=== PATIENT | female | born 1940 | race Caucasian/White ===

== ENCOUNTER 2021-09-06 16:49 | Inpatient (IN) ==
[2021-09-07] MEDS ORDERED: NON-FORMULARY MEDICATION 1 EACH EACH (Alendronate Sodium [Fosamax] 70 MG Tablet) PO SCH (16:30)
[2021-09-07] MEDS ORDERED: Warfarin perPT PO PRN (18:00)
[2021-09-07] MEDS ORDERED: *HR* Metformin 500 MG TABLET PO SCH (21:00)
[2021-09-08] MEDS ORDERED: *HR* Enoxaparin 40 MG/0.4 ML SYRINGE SQ SCH (07:00)
[2021-09-08] MEDS ORDERED: Cholecalciferol (D-3) 1,000 UNIT (25MCG) TABLET PO SCH (09:00)
[2021-09-08] MEDS ORDERED: Magnesium Oxide 400 MG TABLET PO SCH (09:00)
[2021-09-17] MEDS ORDERED: Dextrose Gel 15 GM/37.5 ML TUBE PO PRN ×2 (12:11→12:12)
[2021-09-17] MEDS ORDERED: *HR* Dextrose 50 % in Water (Syg) 50 ML SYRINGE IVP PRN (12:13)
[2021-09-17] MEDS: Gabapentin 400 MG CAPSULE PO SCH ×2 (15:03→19:38)
[2021-09-17] MEDS ORDERED: D5% in Water 1,000 ML IVC PRN (16:21)
[2021-09-17] MEDS: Insulin LISPRO 300 UNITS/3 ML VIAL SUBQ SCH ×2 (17:21→19:28)
[2021-09-17] MEDS ORDERED: *HR* Warfarin 3 MG TABLET PO ONE (18:00)
[2021-09-17] MEDS ORDERED: Warfarin perPT PO PRN (18:00)
[2021-09-17] MEDS: *HR* Metformin 500 MG TABLET PO SCH (19:39)
[2021-09-17] MEDS ORDERED: Insulin DETEMIR 100 UNIT/ML X5UNITS SUBQ SCH (21:00)
[2021-09-18 04:47] LABS: Hematocrit 26.2 % (35.3-44.9); Hemoglobin 8.4 g/dL (11.5-15.4); Mean Corpuscular HGB Conc 32.1 g/dL (31.6-35.5); Mean Corpuscular Hemoglobin 32.7 pg (28.0-33.3); Mean Corpuscular Volume 101.9 fL (83.0-100.0); Mean Platelet Volume 8.7 fL (9.4-12.4); Platelet Count 284 K/mcL (140-400); Red Blood Count 2.57 M/mcL (3.82-4.97); Red Cell Distribution Width 13.3 % (11.5-14.5)
[2021-09-18 04:50] LABS: INR 2.3; Prothrombin Time 25.3 Seconds (9.4-12.1)
[2021-09-18 05:02] LABS: BUN/Creatinine Ratio 20 (6-26); Blood Urea Nitrogen 10 mg/dL (8-23); Calcium 7.7 mg/dL (8.6-10.3); Carbon Dioxide 33 mEq/L (23-29); Chloride 90 mEq/L (98-107); Glucose 132 mg/dL (70-105); Osmolality,Calculated 267 (280-300); Sodium 128 mEq/L (136-145); eGFR For African Americans > 60 (> 60); eGFR For Non-African Americans > 60 (> 60)
[2021-09-18] MEDS: Cholecalciferol (D-3) 1,000 UNIT (25MCG) TABLET PO SCH (07:33)
[2021-09-18] MEDS: Cyanocobalamin (B-12) 1,000 MCG TABLET PO SCH (07:33)
[2021-09-18] MEDS: amLODIPine 5 MG TABLET PO SCH (07:33)
[2021-09-18] MEDS: Furosemide 20 MG TABLET PO SCH (07:34)
[2021-09-18] MEDS: Magnesium Oxide 400 MG TABLET PO SCH (07:34)
[2021-09-18] MEDS: *HR* Metformin 500 MG TABLET PO SCH ×2 (07:34→20:32)
[2021-09-18] MEDS: Gabapentin 400 MG CAPSULE PO SCH ×3 (07:35→20:31)
[2021-09-18] MEDS: Insulin LISPRO 300 UNITS/3 ML VIAL SUBQ SCH ×4 (07:35→20:26)
[2021-09-18] MEDS: *HR* Glimepiride 4 MG TABLET PO SCH (07:35)
[2021-09-18] MEDS ORDERED: hydroCHLOROthiazide 25 MG TABLET PO SCH (09:00)
[2021-09-18] MEDS: Acetaminophen 325 MG TABLET PO PRN ×2 (11:38→20:35)
[2021-09-18] MEDS ORDERED: *HR* Warfarin 3 MG TABLET PO ONE (18:00)
[2021-09-19 06:29] LABS: INR 1.9; Prothrombin Time 21.2 Seconds (9.4-12.1)
[2021-09-19] MEDS: Insulin LISPRO 300 UNITS/3 ML VIAL SUBQ SCH ×4 (08:01→20:21)
[2021-09-19] MEDS: Gabapentin 400 MG CAPSULE PO SCH ×3 (08:02→20:18)
[2021-09-19] MEDS: Cyanocobalamin (B-12) 1,000 MCG TABLET PO SCH (08:03)
[2021-09-19] MEDS: Furosemide 20 MG TABLET PO SCH (08:03)
[2021-09-19] MEDS: amLODIPine 5 MG TABLET PO SCH (08:03)
[2021-09-19] MEDS: Magnesium Oxide 400 MG TABLET PO SCH (08:03)
[2021-09-19] MEDS: *HR* Metformin 500 MG TABLET PO SCH ×2 (08:03→20:18)
[2021-09-19] MEDS: Cholecalciferol (D-3) 1,000 UNIT (25MCG) TABLET PO SCH (08:04)
[2021-09-19] MEDS: *HR* Glimepiride 4 MG TABLET PO SCH (08:04)
[2021-09-19] MEDS: Acetaminophen 325 MG TABLET PO PRN (16:51)
[2021-09-19] MEDS ORDERED: *HR* Warfarin 3 MG TABLET PO ONE (18:00)
[2021-09-20] MEDS: Acetaminophen 325 MG TABLET PO PRN ×3 (04:35→21:26)
[2021-09-20 06:09] LABS: Hematocrit 26.5 % (35.3-44.9); Hemoglobin 8.5 g/dL (11.5-15.4); Mean Corpuscular HGB Conc 32.1 g/dL (31.6-35.5); Mean Corpuscular Hemoglobin 32.2 pg (28.0-33.3); Mean Corpuscular Volume 100.4 fL (83.0-100.0); Mean Platelet Volume 8.7 fL (9.4-12.4); Platelet Count 288 K/mcL (140-400); Red Blood Count 2.64 M/mcL (3.82-4.97); Red Cell Distribution Width 13.2 % (11.5-14.5); White Blood Count 6.7 K/mcL (4.3-11.1)
[2021-09-20 06:15] LABS: INR 2.1
[2021-09-20 06:40] LABS: Alanine Aminotransferase 12 Units/L (7-52); Albumin 2.7 g/dL (3.5-5.7); Alkaline Phosphatase 53 Units/L (34-104); Aspartate Amino Transferase 17 Units/L (13-39); BUN/Creatinine Ratio 20 (6-26); Bilirubin,Total 0.8 mg/dL (0.3-1.0); Blood Urea Nitrogen 9 mg/dL (8-23); Calcium 7.6 mg/dL (8.6-10.3); Carbon Dioxide 29 mEq/L (23-29); Chloride 91 mEq/L (98-107); Globulin 2.7 g/dL (2.4-3.5); Glucose 124 mg/dL (70-105); Magnesium 1.5 mg/dL (1.6-2.6); Osmolality,Calculated 260 (280-300); Potassium 4.2 mEq/L (3.5-5.1); Sodium 125 mEq/L (136-145); Total Protein 5.4 g/dL (6.4-8.9); eGFR For African Americans > 60 (> 60); eGFR For Non-African Americans > 60 (> 60)
[2021-09-20] MEDS ORDERED: Ipratropium/Albuterol Neb 3 ML IH PRN (08:41)
[2021-09-20] MEDS ORDERED: Ipratropium/Albuterol Neb 3 ML ONE (08:45)
[2021-09-20] MEDS: Furosemide 20 MG TABLET PO SCH (08:45)
[2021-09-20] MEDS: Gabapentin 400 MG CAPSULE PO SCH ×3 (08:46→21:26)
[2021-09-20] MEDS: Magnesium Oxide 400 MG TABLET PO SCH (08:46)
[2021-09-20] MEDS: *HR* Glimepiride 4 MG TABLET PO SCH (08:47)
[2021-09-20] MEDS: Cyanocobalamin (B-12) 1,000 MCG TABLET PO SCH (08:47)
[2021-09-20] MEDS: amLODIPine 5 MG TABLET PO SCH (08:47)
[2021-09-20] MEDS: *HR* Metformin 500 MG TABLET PO SCH ×2 (08:48→21:27)
[2021-09-20] MEDS: Insulin LISPRO 300 UNITS/3 ML VIAL SUBQ SCH ×4 (08:48→21:29)
[2021-09-20] MEDS: Cholecalciferol (D-3) 1,000 UNIT (25MCG) TABLET PO SCH (08:50)
[2021-09-20] MEDS ORDERED: Furosemide 40 MG/4 ML VIAL IVP ONE (09:32)
[2021-09-20] MEDS ORDERED: *HR* Warfarin 3 MG TABLET PO ONE (18:00)
[2021-09-20] MEDS: Furosemide 20 MG/2 ML VIAL IVP SCH (21:28)
[2021-09-21 06:27] LABS: Basophils % 0.6 %; Eosinophils # 0.4 K/mcL (0.0-0.6); Eosinophils % 6.9 %; Hematocrit 27.7 % (35.3-44.9); Immature Granulocytes % 0.6 % (0-4); Lymphocytes # 0.8 K/mcL (0.6-4.6); Lymphocytes % 12.9 %; Mean Corpuscular HGB Conc 32.5 g/dL (31.6-35.5); Mean Corpuscular Hemoglobin 32.4 pg (28.0-33.3); Mean Corpuscular Volume 99.6 fL (83.0-100.0); Mean Platelet Volume 8.6 fL (9.4-12.4); Monocytes # 0.7 K/mcL (0.0-1.3); Monocytes % 11.4 %; Neutrophils # 4.2 K/mcL (1.6-8.9); Platelet Count 291 K/mcL (140-400); Red Blood Count 2.78 M/mcL (3.82-4.97); Segmented Neutrophils % 67.6 %; White Blood Count 6.2 K/mcL (4.3-11.1)
[2021-09-21 06:35] LABS: INR 2.7; Prothrombin Time 29.6 Seconds (9.4-12.1)
[2021-09-21 06:41] LABS: BUN/Creatinine Ratio 18 (6-26); Blood Urea Nitrogen 10 mg/dL (8-23); Calcium 7.7 mg/dL (8.6-10.3); Carbon Dioxide 29 mEq/L (23-29); Chloride 93 mEq/L (98-107); Glucose 115 mg/dL (70-105); Osmolality,Calculated 266 (280-300); Potassium 4.1 mEq/L (3.5-5.1); Sodium 128 mEq/L (136-145); eGFR For African Americans > 60 (> 60); eGFR For Non-African Americans > 60 (> 60)
[2021-09-21] MEDS: Insulin LISPRO 300 UNITS/3 ML VIAL SUBQ SCH ×4 (07:51→20:17)
[2021-09-21] MEDS: Magnesium Oxide 400 MG TABLET PO SCH (08:08)
[2021-09-21] MEDS: Furosemide 20 MG/2 ML VIAL IVP SCH ×2 (08:09→20:23)
[2021-09-21] MEDS: Cholecalciferol (D-3) 1,000 UNIT (25MCG) TABLET PO SCH (08:09)
[2021-09-21] MEDS: Gabapentin 400 MG CAPSULE PO SCH ×3 (08:09→20:18)
[2021-09-21] MEDS: Cyanocobalamin (B-12) 1,000 MCG TABLET PO SCH (08:09)
[2021-09-21] MEDS: *HR* Glimepiride 4 MG TABLET PO SCH (08:09)
[2021-09-21] MEDS: *HR* Metformin 500 MG TABLET PO SCH ×2 (08:09→20:19)
[2021-09-21] MEDS: amLODIPine 5 MG TABLET PO SCH (08:09)
[2021-09-21] MEDS: Acetaminophen 325 MG TABLET PO PRN ×2 (10:51→17:39)
[2021-09-21] MEDS ORDERED: *HR* Warfarin 3 MG TABLET PO ONE (18:00)
[2021-09-21] MEDS: *HR* OxyCODONE Immed Rel 5 MG TABLET PO PRN (20:18)
[2021-09-22 08:22] LABS: INR 3.2
[2021-09-22] MEDS: Insulin LISPRO 300 UNITS/3 ML VIAL SUBQ SCH ×4 (09:17→19:45)
[2021-09-22] MEDS: Acetaminophen 325 MG TABLET PO PRN ×2 (09:21→18:18)
[2021-09-22] MEDS: Cholecalciferol (D-3) 1,000 UNIT (25MCG) TABLET PO SCH (09:23)
[2021-09-22] MEDS: *HR* Metformin 500 MG TABLET PO SCH ×2 (09:23→19:20)
[2021-09-22] MEDS: Magnesium Oxide 400 MG TABLET PO SCH (09:23)
[2021-09-22] MEDS: *HR* Glimepiride 4 MG TABLET PO SCH (09:23)
[2021-09-22] MEDS: Gabapentin 400 MG CAPSULE PO SCH ×3 (09:23→19:19)
[2021-09-22] MEDS: Cyanocobalamin (B-12) 1,000 MCG TABLET PO SCH (09:23)
[2021-09-22] MEDS: amLODIPine 5 MG TABLET PO SCH (09:23)
[2021-09-22] MEDS: Furosemide 20 MG/2 ML VIAL IVP SCH (09:24)
[2021-09-22] MEDS: Furosemide 20 MG TABLET PO SCH (16:34)
[2021-09-23] MEDS: Acetaminophen 325 MG TABLET PO PRN ×3 (04:28→23:36)
[2021-09-23 04:40] LABS: Basophils # 0.1 K/mcL (0.0-0.2); Basophils % 0.9 %; Eosinophils # 0.6 K/mcL (0.0-0.6); Eosinophils % 9.8 %; Hemoglobin 9.4 g/dL (11.5-15.4); Immature Granulocytes % 0.5 % (0-4); Lymphocytes # 1.1 K/mcL (0.6-4.6); Lymphocytes % 19.3 %; Mean Corpuscular HGB Conc 32.4 g/dL (31.6-35.5); Mean Corpuscular Volume 98.6 fL (83.0-100.0); Mean Platelet Volume 8.5 fL (9.4-12.4); Monocytes # 0.7 K/mcL (0.0-1.3); Monocytes % 11.9 %; Neutrophils # 3.4 K/mcL (1.6-8.9); Platelet Count 291 K/mcL (140-400); Red Blood Count 2.94 M/mcL (3.82-4.97); Red Cell Distribution Width 13.2 % (11.5-14.5); Segmented Neutrophils % 57.6 %; White Blood Count 5.8 K/mcL (4.3-11.1)
[2021-09-23 04:42] LABS: Prothrombin Time 33.4 Seconds (9.4-12.1)
[2021-09-23 04:54] LABS: BUN/Creatinine Ratio 20 (6-26); Blood Urea Nitrogen 8 mg/dL (8-23); Calcium 8.2 mg/dL (8.6-10.3); Carbon Dioxide 31 mEq/L (23-29); Chloride 96 mEq/L (98-107); Glucose 113 mg/dL (70-105); Osmolality,Calculated 273 (280-300); Potassium 3.7 mEq/L (3.5-5.1); Sodium 132 mEq/L (136-145); eGFR For African Americans > 60 (> 60); eGFR For Non-African Americans > 60 (> 60)
[2021-09-23] MEDS: *HR* Metformin 500 MG TABLET PO SCH ×2 (08:09→19:33)
[2021-09-23] MEDS: Cyanocobalamin (B-12) 1,000 MCG TABLET PO SCH (08:09)
[2021-09-23] MEDS: Magnesium Oxide 400 MG TABLET PO SCH (08:10)
[2021-09-23] MEDS: amLODIPine 5 MG TABLET PO SCH (08:10)
[2021-09-23] MEDS: Insulin LISPRO 300 UNITS/3 ML VIAL SUBQ SCH ×3 (08:10→17:16)
[2021-09-23] MEDS: Cholecalciferol (D-3) 1,000 UNIT (25MCG) TABLET PO SCH (08:10)
[2021-09-23] MEDS: *HR* Glimepiride 4 MG TABLET PO SCH (08:10)
[2021-09-23] MEDS: Furosemide 20 MG TABLET PO SCH ×2 (08:10→17:14)
[2021-09-23] MEDS: Gabapentin 400 MG CAPSULE PO SCH ×3 (08:10→19:32)
[2021-09-23] MEDS ORDERED: *HR* Warfarin 3 MG TABLET PO ONE (18:00)
[2021-09-24] MEDS: Insulin LISPRO 300 UNITS/3 ML VIAL SUBQ SCH ×5 (00:20→19:32)
[2021-09-24 04:53] LABS: INR 2.7; Prothrombin Time 29.9 Seconds (9.4-12.1)
[2021-09-24] MEDS: Gabapentin 400 MG CAPSULE PO SCH ×3 (08:20→19:28)
[2021-09-24] MEDS: Cyanocobalamin (B-12) 1,000 MCG TABLET PO SCH (08:20)
[2021-09-24] MEDS: *HR* Metformin 500 MG TABLET PO SCH ×2 (08:20→19:29)
[2021-09-24] MEDS: Furosemide 20 MG TABLET PO SCH ×2 (08:20→17:05)
[2021-09-24] MEDS: Magnesium Oxide 400 MG TABLET PO SCH (08:21)
[2021-09-24] MEDS: *HR* Glimepiride 4 MG TABLET PO SCH (08:21)
[2021-09-24] MEDS: amLODIPine 5 MG TABLET PO SCH (08:21)
[2021-09-24] MEDS: Cholecalciferol (D-3) 1,000 UNIT (25MCG) TABLET PO SCH (08:21)
[2021-09-24] MEDS ORDERED: *HR* Warfarin 3 MG TABLET PO ONE (18:00)
[2021-09-24] MEDS: Acetaminophen 325 MG TABLET PO PRN (19:27)
[2021-09-24] MEDS: Sennosides 8.6 MG TABLET PO SCH (19:32)
[2021-09-25 04:52] LABS: INR 2.1; Prothrombin Time 23.1 Seconds (9.4-12.1)
[2021-09-25] MEDS: Furosemide 20 MG TABLET PO SCH ×2 (07:43→18:11)
[2021-09-25] MEDS: Cholecalciferol (D-3) 1,000 UNIT (25MCG) TABLET PO SCH (07:44)
[2021-09-25] MEDS: Gabapentin 400 MG CAPSULE PO SCH ×3 (07:44→20:32)
[2021-09-25] MEDS: *HR* Glimepiride 4 MG TABLET PO SCH (07:45)
[2021-09-25] MEDS: Magnesium Oxide 400 MG TABLET PO SCH (07:45)
[2021-09-25] MEDS: *HR* Metformin 500 MG TABLET PO SCH ×2 (07:46→20:31)
[2021-09-25] MEDS: amLODIPine 5 MG TABLET PO SCH (07:46)
[2021-09-25] MEDS: Sennosides 8.6 MG TABLET PO SCH ×2 (07:46→20:33)
[2021-09-25] MEDS: Cyanocobalamin (B-12) 1,000 MCG TABLET PO SCH (07:47)
[2021-09-25] MEDS: Insulin LISPRO 300 UNITS/3 ML VIAL SUBQ SCH ×4 (07:48→20:31)
[2021-09-25] MEDS: Acetaminophen 325 MG TABLET PO PRN (10:47)
[2021-09-25] MEDS ORDERED: *HR* Warfarin 3 MG TABLET PO ONE (18:00)
[2021-09-26 06:08] LABS: INR 1.8; Prothrombin Time 20.5 Seconds (9.4-12.1)
[2021-09-26] MEDS: Insulin LISPRO 300 UNITS/3 ML VIAL SUBQ SCH ×4 (08:11→20:17)
[2021-09-26] MEDS: Cholecalciferol (D-3) 1,000 UNIT (25MCG) TABLET PO SCH (08:12)
[2021-09-26] MEDS: Acetaminophen 325 MG TABLET PO PRN ×2 (08:12→20:16)
[2021-09-26] MEDS: *HR* Glimepiride 4 MG TABLET PO SCH (08:13)
[2021-09-26] MEDS: amLODIPine 5 MG TABLET PO SCH (08:13)
[2021-09-26] MEDS: Magnesium Oxide 400 MG TABLET PO SCH (08:13)
[2021-09-26] MEDS: Gabapentin 400 MG CAPSULE PO SCH ×3 (08:13→20:16)
[2021-09-26] MEDS: Cyanocobalamin (B-12) 1,000 MCG TABLET PO SCH (08:13)
[2021-09-26] MEDS: Sennosides 8.6 MG TABLET PO SCH ×2 (08:13→20:16)
[2021-09-26] MEDS: *HR* Metformin 500 MG TABLET PO SCH ×2 (08:14→20:16)
[2021-09-26] MEDS: Furosemide 20 MG TABLET PO SCH ×2 (08:14→15:25)
[2021-09-26] MEDS ORDERED: *HR* Warfarin 3 MG TABLET PO ONE (18:00)
[2021-09-27 06:23] LABS: Hematocrit 33.2 % (35.3-44.9); Hemoglobin 10.7 g/dL (11.5-15.4); Mean Corpuscular HGB Conc 32.2 g/dL (31.6-35.5); Mean Corpuscular Hemoglobin 31.9 pg (28.0-33.3); Mean Corpuscular Volume 99.1 fL (83.0-100.0); Mean Platelet Volume 8.6 fL (9.4-12.4); Platelet Count 240 K/mcL (140-400); Red Blood Count 3.35 M/mcL (3.82-4.97); Red Cell Distribution Width 13.7 % (11.5-14.5); White Blood Count 6.4 K/mcL (4.3-11.1)
[2021-09-27 06:35] LABS: Prothrombin Time 22.1 Seconds (9.4-12.1)
[2021-09-27 06:59] LABS: Alanine Aminotransferase 12 Units/L (7-52); Albumin 3.3 g/dL (3.5-5.7); Albumin/Globulin Ratio 1.1 (1.1-2.2); Alkaline Phosphatase 66 Units/L (34-104); Aspartate Amino Transferase 16 Units/L (13-39); BUN/Creatinine Ratio 24 (6-26); Bilirubin,Total 0.9 mg/dL (0.3-1.0); Blood Urea Nitrogen 12 mg/dL (8-23); Calcium 9.2 mg/dL (8.6-10.3); Carbon Dioxide 27 mEq/L (23-29); Chloride 97 mEq/L (98-107); Glucose 107 mg/dL (70-105); Magnesium 1.3 mg/dL (1.6-2.6); Osmolality,Calculated 276 (280-300); Potassium 3.5 mEq/L (3.5-5.1); Sodium 133 mEq/L (136-145); Total Protein 6.3 g/dL (6.4-8.9); eGFR For African Americans > 60 (> 60); eGFR For Non-African Americans > 60 (> 60)
[2021-09-27] MEDS: Gabapentin 400 MG CAPSULE PO SCH ×3 (07:45→20:53)
[2021-09-27] MEDS: Cyanocobalamin (B-12) 1,000 MCG TABLET PO SCH (07:45)
[2021-09-27] MEDS: amLODIPine 5 MG TABLET PO SCH (07:45)
[2021-09-27] MEDS: Magnesium Oxide 400 MG TABLET PO SCH ×3 (07:46→20:53)
[2021-09-27] MEDS: Acetaminophen 325 MG TABLET PO PRN ×2 (07:46→20:55)
[2021-09-27] MEDS: Cholecalciferol (D-3) 1,000 UNIT (25MCG) TABLET PO SCH (07:46)
[2021-09-27] MEDS: Sennosides 8.6 MG TABLET PO SCH ×2 (07:46→20:53)
[2021-09-27] MEDS: Insulin LISPRO 300 UNITS/3 ML VIAL SUBQ SCH ×4 (07:47→21:20)
[2021-09-27] MEDS: Furosemide 20 MG TABLET PO SCH ×2 (07:47→17:02)
[2021-09-27] MEDS: *HR* Glimepiride 4 MG TABLET PO SCH (07:47)
[2021-09-27] MEDS: *HR* Metformin 500 MG TABLET PO SCH ×2 (07:47→21:23)
[2021-09-27] MEDS ORDERED: *HR* Warfarin 3 MG TABLET PO ONE (18:00)
[2021-09-28 05:52] LABS: INR 2.1; Prothrombin Time 23.1 Seconds (9.4-12.1)
[2021-09-28] MEDS: Gabapentin 400 MG CAPSULE PO SCH ×3 (08:02→20:23)
[2021-09-28] MEDS: Magnesium Oxide 400 MG TABLET PO SCH ×2 (08:02→20:23)
[2021-09-28] MEDS: Cyanocobalamin (B-12) 1,000 MCG TABLET PO SCH (08:02)
[2021-09-28] MEDS: *HR* Metformin 500 MG TABLET PO SCH ×2 (08:02→20:21)
[2021-09-28] MEDS: *HR* Glimepiride 4 MG TABLET PO SCH (08:04)
[2021-09-28] MEDS: amLODIPine 5 MG TABLET PO SCH (08:04)
[2021-09-28] MEDS: Sennosides 8.6 MG TABLET PO SCH ×2 (08:05→20:24)
[2021-09-28] MEDS: Insulin LISPRO 300 UNITS/3 ML VIAL SUBQ SCH ×4 (08:06→20:26)
[2021-09-28] MEDS: Cholecalciferol (D-3) 1,000 UNIT (25MCG) TABLET PO SCH (08:06)
[2021-09-28] MEDS: Furosemide 20 MG TABLET PO SCH ×2 (08:06→17:12)
[2021-09-28] MEDS: Acetaminophen 325 MG TABLET PO PRN ×2 (08:21→21:36)
[2021-09-28] MEDS ORDERED: *HR* Warfarin 3 MG TABLET PO ONE (18:00)
[2021-09-29 05:23] LABS: Hematocrit 35.1 % (35.3-44.9); Hemoglobin 11.4 g/dL (11.5-15.4); Mean Corpuscular HGB Conc 32.5 g/dL (31.6-35.5); Mean Corpuscular Volume 98.6 fL (83.0-100.0); Mean Platelet Volume 8.4 fL (9.4-12.4); Platelet Count 236 K/mcL (140-400); Red Blood Count 3.56 M/mcL (3.82-4.97); Red Cell Distribution Width 13.5 % (11.5-14.5); White Blood Count 5.4 K/mcL (4.3-11.1)
[2021-09-29 05:25] LABS: INR 2.7; Prothrombin Time 29.9 Seconds (9.4-12.1)
[2021-09-29 05:36] LABS: BUN/Creatinine Ratio 22 (6-26); Blood Urea Nitrogen 11 mg/dL (8-23); Carbon Dioxide 27 mEq/L (23-29); Chloride 99 mEq/L (98-107); Glucose 142 mg/dL (70-105); Magnesium 1.7 mg/dL (1.6-2.6); Osmolality,Calculated 280 (280-300); Potassium 3.5 mEq/L (3.5-5.1); Sodium 134 mEq/L (136-145); eGFR For African Americans > 60 (> 60); eGFR For Non-African Americans > 60 (> 60)
[2021-09-29] MEDS: Acetaminophen 325 MG TABLET PO PRN ×2 (06:35→20:31)
[2021-09-29] MEDS: Insulin LISPRO 300 UNITS/3 ML VIAL SUBQ SCH ×4 (08:37→21:09)
[2021-09-29] MEDS: Cyanocobalamin (B-12) 1,000 MCG TABLET PO SCH (08:39)
[2021-09-29] MEDS: Cholecalciferol (D-3) 1,000 UNIT (25MCG) TABLET PO SCH (08:39)
[2021-09-29] MEDS: *HR* Metformin 500 MG TABLET PO SCH ×2 (08:39→20:32)
[2021-09-29] MEDS: *HR* Glimepiride 4 MG TABLET PO SCH (08:40)
[2021-09-29] MEDS: Gabapentin 400 MG CAPSULE PO SCH ×3 (08:40→20:31)
[2021-09-29] MEDS: amLODIPine 5 MG TABLET PO SCH (08:40)
[2021-09-29] MEDS: Sennosides 8.6 MG TABLET PO SCH ×2 (08:41→20:32)
[2021-09-29] MEDS: Furosemide 20 MG TABLET PO SCH ×2 (08:42→17:09)
[2021-09-29] MEDS: Magnesium Oxide 400 MG TABLET PO SCH ×2 (08:42→20:32)
[2021-09-29] MEDS ORDERED: *HR* Warfarin 3 MG TABLET PO ONE (18:00)
[2021-09-29 18:57] VITALS: RESP 16
[2021-09-30 05:13] LABS: INR 2.9
[2021-09-30] MEDS: Cholecalciferol (D-3) 1,000 UNIT (25MCG) TABLET PO SCH (08:24)
[2021-09-30] MEDS: Cyanocobalamin (B-12) 1,000 MCG TABLET PO SCH (08:25)
[2021-09-30] MEDS: Sennosides 8.6 MG TABLET PO SCH ×2 (08:27→20:19)
[2021-09-30] MEDS: Gabapentin 400 MG CAPSULE PO SCH ×3 (08:27→20:19)
[2021-09-30] MEDS: amLODIPine 5 MG TABLET PO SCH (08:28)
[2021-09-30] MEDS: Furosemide 20 MG TABLET PO SCH ×2 (08:29→17:04)
[2021-09-30] MEDS: *HR* Glimepiride 4 MG TABLET PO SCH (08:29)
[2021-09-30] MEDS: Magnesium Oxide 400 MG TABLET PO SCH ×2 (08:29→20:19)
[2021-09-30] MEDS: *HR* Metformin 500 MG TABLET PO SCH ×2 (08:29→20:20)
[2021-09-30] MEDS: Insulin LISPRO 300 UNITS/3 ML VIAL SUBQ SCH ×4 (08:30→20:19)
[2021-09-30] MEDS: Acetaminophen 325 MG TABLET PO PRN ×2 (08:38→20:20)
[2021-09-30] MEDS ORDERED: *HR* Warfarin 1 MG TABLET PO ONE (18:00)
[2021-10-01 04:53] LABS: Prothrombin Time 33.7 Seconds (9.4-12.1)
[2021-10-01] MEDS: Acetaminophen 325 MG TABLET PO PRN (05:42)
[2021-10-01] MEDS: Insulin LISPRO 300 UNITS/3 ML VIAL SUBQ SCH ×2 (07:27→11:53)
[2021-10-01 07:37] VITALS: BP 136/78; PULSE 93; TEMP 97.9; O2SAT 96
[2021-10-01] MEDS: amLODIPine 5 MG TABLET PO SCH (07:37)
[2021-10-01] MEDS: Cholecalciferol (D-3) 1,000 UNIT (25MCG) TABLET PO SCH (07:37)
[2021-10-01] MEDS: Cyanocobalamin (B-12) 1,000 MCG TABLET PO SCH (07:37)
[2021-10-01] MEDS: Gabapentin 400 MG CAPSULE PO SCH (07:37)
[2021-10-01] MEDS: *HR* Glimepiride 4 MG TABLET PO SCH (07:38)
[2021-10-01] MEDS: *HR* OxyCODONE Immed Rel 5 MG TABLET PO PRN (07:38)
[2021-10-01] MEDS: Furosemide 20 MG TABLET PO SCH (07:38)
[2021-10-01] MEDS: Sennosides 8.6 MG TABLET PO SCH (07:38)
[2021-10-01] MEDS: *HR* Metformin 500 MG TABLET PO SCH (07:38)
[2021-10-01] MEDS: Magnesium Oxide 400 MG TABLET PO SCH (07:39)
[2021-10-01] MEDS ORDERED: *HR* Warfarin 1 MG TABLET PO ONE (18:00)
== END 2021-10-01 12:00 | disposition home or self-care (01) | DRG 559 ==
LOC: INPGRE 09-17 11:42
PROVIDERS: ADMIT Family Medicine; ATTEND Family Medicine